=== PATIENT | male | born 1940 | race Caucasian/White ===

== ENCOUNTER 2021-07-18 11:22 | Emergency (ER) | payer MEDICARE ==
[2021-07-18 12:36] LABS: RED BLOOD COUNT 4.1 M/UL (4.20-5.50); WHITE BLOOD COUNT 4.8 K/UL (4.5-11.0)
[2021-07-18 12:57] LABS: BUN/CREATININE RATIO 19 (0-10)
== END 2021-07-18 15:00 | disposition home or self-care (01) ==
LOC: ER1 11:22
PROVIDERS: Physician Assistant Medical
DX: R11.2 Nausea with vomiting, unspecified (principal); R51.9 Headache, unspecified; I25.2 Old myocardial infarction; Z86.73 Personal history of transient ischemic attack (TIA), and cerebral infarction without residual deficits
CPT/HCPCS: 80053; 81001; 83690; 83735; 85025; 93005; 99284; J7030